=== PATIENT | female | born 1940 | race Caucasian/White ===

== ENCOUNTER 2016-11-05 13:03 | Inpatient (IN) | payer MEDICARE ==
[~2016-11-05] VITALS: Ht 0.5 cm; Wt 95.3 kg
--- NOTE | ~2016-11-05 | EKG ---
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
--- NOTE | ~2016-11-05 | EKG ---
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 : 1940 Requested By: Roseanna Mendez Order Number: [id number] MD: Ric Del Cid Measurements Intervals [place] Rate: 77 P: 2 MA: 157 QRS: 59 QRSD: 151 T: -17 QT: 406 QTc: 460 Interpretive Statements Sinus rhythm Right bundle branch block Compared to ECG 07/28/2016 23:01:42 Atrial premature complex(es) no longer present Electronically Signed On 11-07-2016 13:46:19 CDT by Ric Del Cid [email or web address] <ELECTRONICALLY SIGNED> By: Ric Del Cid MD, FACC 11/07/16 1346 1307 1307 Ric Del Cid MD, [facility] /EPI
[2016-11-05 13:03] VITALS: BP 148/50
[~2016-11-05 13:03] MED LIST: ADVAIR 250-501 EACH INH; ADVAIRDISKUS; ADVIL LIQUI-GE200 MG PO; ALPHAGAN P15 ML OP; ANTIVERT25 MG PO; APAP500 PO; ASPIRIN325 PO; AUGMENTIN 875875 MG PO; BONIVA150 MG PO; CEFAZOLIN 1GM VI1 G1 IJ; CIPROFLOXACIN250 M2 PO; CO Q-10100 MG PO; COUMADIN 5 MG TA5 M1 PO; DOXYCYCLINE 10100 MG PO; DUONEB 2.5-0.5 M3 ML INH; ENOXAPARIN80 MG/0.1 SUBQ; ENOXAPARIN80 MG/0.8 SUBQ; FLOMAX PO; FOSAMAX 70 MG T70 MG PO; IBUPROFEN 400400 M1 PO; IBUPROFEN 400400 M2 PO; LEVAQUIN 500 M500 M2; LEVAQUIN 500 M500 MG PO; LIDODERM 5%1 PATC1 TRANSDERM; MULTIVITAMINS; NORCO 5-325 TA1 EACH PO; ONDANSETRON HCL4 M2 PO; PAIN RELIEVER325 MG; PEPCID20 MG PO; PERCOCET 5-3251 EACH PO; PREDNISONE 10 M10 MG; PREDNISONE 10 M10 MG PO; PREDNISONE 20 M20 MG PO; PROAIR HFA8.5 GM IH; PROAIR HFA8.5 GM INH; PROVENTIL; SINGULAIR 10 MG10 M1 PO; SPIRIVA INH; TAMSULOSIN HCL0.4 MG PO; TYLENOL325 MG PO; VALIUM2 MG PO; VERAPAMIL ER120 MG PO; VITAMIN C500 M1 PO; VITAMINC500; XALATAN2.5 ML OP; [UNRECOGNIZED DRUG - OTHER] PO
[2016-11-05 13:28] LABS: ABSOLUTE NEUTROPHILS 4.7 thou/uL (1.4-8.2); BASOPHILS 0.9 % (0.0-2.0); EOSINOPHILS 1.6 % (0.0-3.0); HEMATOCRIT 40.4 % (37.0-47.0); HEMOGLOBIN 13.5 gm/dL (12.0-15.0); LYMPHOCYTES 15.9 % (24.0-44.0); MCH 28.9 pg (26.0-34.0); MCHC 33.5 g/dL (28.0-37.0); MCV 86.3 fL (80.0-100.0); MONOCYTES 11.2 % (1.0-8.0); PLATELET COUNT 224 thou/uL (150-400); POLYS 70.4 % (36.0-66.0); RBC 4.68 mil/uL (4.20-5.00); RDW 16.1 % (10.5-14.5); WBC 6.7 thou/uL (4.0-11.0)
[2016-11-05 13:30] LABS: MANUAL DIFF NO
[2016-11-05 13:34] LABS: ANION GAP 7 mmol/L (7-16); BUN 17 mg/dL (7-18); CALCIUM 9.2 mg/dL (8.5-10.1); CHLORIDE 109 mmol/L (98-107); CO2 25 mmol/L (21-32); CREATININE 0.8 mg/dL (0.6-1.0); GLUCOSE 167 mg/dL (74-106); POTASSIUM 3.8 mmol/L (3.5-5.1); SODIUM 141 mmol/L (136-145)
[2016-11-05 13:42] LABS: TROPONIN-I < 0.04 ng/mL (<0.04-0.07)
[2016-11-05] MEDS ORDERED: TYLENOL325 MG PO (16:29)
[2016-11-05] MEDS ORDERED: CARDIZEM CD180 MG PO (16:30)
[2016-11-05 16:49] VITALS: BP 148/61
[2016-11-05 17:45] VITALS: BP 163/54
[2016-11-05 19:26] VITALS: BP 159/65
[2016-11-05 21:25] LABS: CK-MB MASS 3.4 ng/mL (<0.5-3.6); TROPONIN-I 0.29 ng/mL (<0.04-0.07)
[2016-11-05 23:27] VITALS: BP 150/55
[2016-11-06 02:11] LABS: GLYCOHEMOGLOBIN (HGB A1C) 5.7 % (4.8-5.6)
[2016-11-06 03:07] LABS: ANION GAP 8 mmol/L (7-16); BUN 14 mg/dL (7-18); CALCIUM 8.9 mg/dL (8.5-10.1); CHLORIDE 110 mmol/L (98-107); CHOLESTEROL 176 mg/dL (<200); CO2 25 mmol/L (21-32); CREATININE 0.7 mg/dL (0.6-1.0); GLUCOSE 102 mg/dL (74-106); HDL CHOLESTEROL 59 mg/dL (>40); LDL CHOLESTEROL 99 mg/dL (<100); POTASSIUM 3.9 mmol/L (3.5-5.1); SODIUM 143 mmol/L (136-145); TRIGLYCERIDE 92 mg/dL (<150); VLDL 18 mg/dL (<40)
[2016-11-06 03:08] LABS: SERUM ASSESSMENT Clear
[2016-11-06 03:51] VITALS: BP 124/41
[2016-11-06 07:40] VITALS: BP 138/52
[2016-11-06 09:46] VITALS: BP 138/52
[2016-11-06] MEDS ORDERED: LOPRESSOR25 PO (10:21)
== END 2016-11-06 11:07 | disposition home or self-care (01) | DRG 313 ==
LOC: ER 13:03 → EROBS 15:49 → 2N 16:39
PROVIDERS: Emergency Medicine; Nurse Practitioner
DX: R07.9 Chest pain, unspecified (principal); J44.9 Chronic obstructive pulmonary disease, unspecified; F41.9 Anxiety disorder, unspecified; G47.30 Sleep apnea, unspecified; H40.9 Unspecified glaucoma; I10 Essential (primary) hypertension; I35.0 Nonrheumatic aortic (valve) stenosis; M81.0 Age-related osteoporosis without current pathological fracture; Z79.899 Other long term (current) drug therapy; Z88.8 Allergy status to other drugs, medicaments and biological substances; Z90.49 Acquired absence of other specified parts of digestive tract; Z86.711 Personal history of pulmonary embolism; Z98.42 Cataract extraction status, left eye; Z98.41 Cataract extraction status, right eye; Z87.442 Personal history of urinary calculi; Z88.2 Allergy status to sulfonamides; Z88.5 Allergy status to narcotic agent; Z87.891 Personal history of nicotine dependence; Z82.49 Family history of ischemic heart disease and other diseases of the circulatory system; Z83.3 Family history of diabetes mellitus; Z80.9 Family history of malignant neoplasm, unspecified; Z99.81 Dependence on supplemental oxygen
CPT/HCPCS: 10081

== ENCOUNTER 2017-08-14 15:22 | Inpatient (IN) | payer MEDICARE ==
[~2017-08-14] VITALS: Ht 162.6 cm; Wt 88.0 kg
--- NOTE | ~2017-08-14 | EKG ---
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 : 1940 Requested By: Naveen Kaye Order Number: [id number] MD: Ric Del Cid Measurements Intervals [place] Rate: 60 P: 6 CO: 170 QRS: 64 QRSD: 150 T: -11 QT: 457 QTc: 457 Interpretive Statements Sinus rhythm Right bundle branch block Compared to ECG 11/05/2016 16:58:42 No significant changes Electronically Signed On 08-15-2017 8:40:27 [employer]TER VELVET by Ric Del Cid [email or web address] <ELECTRONICALLY SIGNED> By: Ric Del Cid MD, [facility] 08/15/17 0840 1542 1542 Ric Del Cid MD, [facility] /EPI
[2017-08-14 15:22] VITALS: BP 171/71
[~2017-08-14 15:22] MED LIST changes: +CARDIZEM CD180 MG PO; +LOPRESSOR25 PO
[2017-08-14 16:22] LABS: ANION GAP 4 mmol/L (7-16); BUN 18 mg/dL (7-18); CALCIUM 9.6 mg/dL (8.5-10.1); CHLORIDE 106 mmol/L (98-107); CO2 28 mmol/L (21-32); CREATININE 0.8 mg/dL (0.6-1.0); GLUCOSE 102 mg/dL (74-106); POTASSIUM 3.9 mmol/L (3.5-5.1); SODIUM 138 mmol/L (136-145)
[2017-08-14 16:31] LABS: TROPONIN-I < 0.04 ng/mL (<0.06)
[2017-08-14 16:35] LABS: ABSOLUTE NEUTROPHILS 3.7 thou/uL (1.4-8.2); BASOPHILS 1.2 % (0.0-2.0); EOSINOPHILS 2.3 % (0.0-3.0); HEMATOCRIT 41.8 % (37.0-47.0); HEMOGLOBIN 14.3 gm/dL (12.0-15.0); LYMPHOCYTES 22.4 % (24.0-44.0); MCH 30.5 pg (26.0-34.0); MCHC 34.2 g/dL (28.0-37.0); MCV 89.3 fL (80.0-100.0); MONOCYTES 9.3 % (1.0-8.0); PLATELET COUNT 189 thou/uL (150-400); POLYS 64.8 % (36.0-66.0); RBC 4.68 mil/uL (4.20-5.00); RDW 15.4 % (10.5-14.5); WBC 5.7 thou/uL (4.0-11.0)
[2017-08-14 18:30] VITALS: BP 153/57
[2017-08-14 19:10] VITALS: BP 134/56
[2017-08-14 19:30] VITALS: BP 135/63
[2017-08-15 00:38] VITALS: BP 115/59
[2017-08-15 04:00] VITALS: BP 135/54
[2017-08-15 06:12] LABS: HEMATOCRIT 40.2 % (37.0-47.0); HEMOGLOBIN 13.6 gm/dL (12.0-15.0); MCH 30.5 pg (26.0-34.0); MCHC 33.9 g/dL (28.0-37.0); RBC 4.47 mil/uL (4.20-5.00); RDW 15.3 % (10.5-14.5); WBC 6.2 thou/uL (4.0-11.0)
[2017-08-15 06:31] LABS: CALCIUM 9.1 mg/dL (8.5-10.1); CREATININE 0.8 mg/dL (0.6-1.0); POTASSIUM 4.1 mmol/L (3.5-5.1)
[2017-08-15 07:31] VITALS: BP 137/58
[2017-08-15 15:11] VITALS: BP 132/64
[2017-08-15 16:33] VITALS: BP 132/64
== END 2017-08-15 17:32 | disposition home or self-care (01) | DRG 149 ==
LOC: ER 15:22 → 4E 17:32 → EROBS 17:32 → 4E 19:11
PROVIDERS: Hospitalist; Nurse Practitioner
DX: R42 Dizziness and giddiness (principal); I10 Essential (primary) hypertension; J44.9 Chronic obstructive pulmonary disease, unspecified; H40.9 Unspecified glaucoma; F41.9 Anxiety disorder, unspecified; M81.0 Age-related osteoporosis without current pathological fracture; Z88.8 Allergy status to other drugs, medicaments and biological substances; Z88.6 Allergy status to analgesic agent; Z91.013 Allergy to seafood; Z90.49 Acquired absence of other specified parts of digestive tract; Z79.899 Other long term (current) drug therapy; Z86.711 Personal history of pulmonary embolism; Z87.442 Personal history of urinary calculi; Z98.42 Cataract extraction status, left eye; Z98.41 Cataract extraction status, right eye; Z87.01 Personal history of pneumonia (recurrent); Z82.49 Family history of ischemic heart disease and other diseases of the circulatory system; Z83.3 Family history of diabetes mellitus; Z87.891 Personal history of nicotine dependence
CPT/HCPCS: 10084

== ENCOUNTER 2018-12-07 10:20 | Inpatient (IN) | payer MEDICARE ==
[~2018-12-07] VITALS: Ht 162.6 cm; Wt 85.5 kg
[2018-12-07 10:21] VITALS: BP 154/58
[2018-12-07 11:00] LABS: ABSOLUTE NEUTROPHILS 4.5 thou/uL (1.4-8.2); BASOPHILS 0.7 % (0.0-2.0); EOSINOPHILS 2.1 % (0.0-3.0); HEMATOCRIT 42.6 % (37.0-47.0); HEMOGLOBIN 14.4 gm/dL (12.0-15.0); LYMPHOCYTES 18.7 % (24.0-44.0); MCH 30.6 pg (26.0-34.0); MCHC 33.7 g/dL (28.0-37.0); MCV 90.8 fL (80.0-100.0); MONOCYTES 7.8 % (1.0-8.0); PLATELET COUNT 224 thou/uL (150-400); POLYS 70.7 % (36.0-66.0); RBC 4.69 mil/uL (4.20-5.00); RDW 14.6 % (10.5-14.5); WBC 6.3 thou/uL (4.0-11.0)
[2018-12-07 11:06] LABS: ANION GAP 12 mmol/L (7-16); BUN 13 mg/dL (7-18); CALCIUM 9.6 mg/dL (8.5-10.1); CHLORIDE 106 mmol/L (98-107); CO2 25 mmol/L (21-32); CREATININE 0.8 mg/dL (0.6-1.0); GLUCOSE 100 mg/dL (74-106); SODIUM 143 mmol/L (136-145)
[2018-12-07 11:16] LABS: ALBUMIN 3.7 g/dL (3.4-5.0); MAGNESIUM 2.1 mg/dL (1.8-2.4); SGOT 20 U/L (15-37); SGPT 22 U/L (30-65); TOTAL BILIRUBIN 0.4 mg/dL (<0.1-1.0); TOTAL PROTEIN 7.2 g/dL (6.4-8.2); TROPONIN-I <0.06 ng/mL (<0.06)
[2018-12-07 13:08] VITALS: BP 154/55
[2018-12-07 13:25] VITALS: BP 147/56
[2018-12-07] MEDS ORDERED: CARDIZEM CD120 MG PO (13:25)
[2018-12-07] MEDS ORDERED: XALATAN2.5 ML OPHTHALMIC (16:03)
--- NOTE | 2018-12-07 16:12 | 2DMMODE ---
[facility] [address] [facility] [place] [address] 2 D/M-MODE ECHOCARDIOGRAM Name: BHARATHI GRANT Room #: 200-I ADM IN M.R.#: [id number] ������������� Admission: 12/07/18 ������������� Attend Phys: Sixto Osorio MD Discharge: ��� ������������� ��� Date of : 40 Date of Service: 12/07/18 1612 �� Report #: [id number] �������� ��������������������������������������������[id number] THIS REPORT FOR: //name// APPROVED REPORT Study performed: 12/07/2018 13:06:02 EXAM: Comprehensive 2D, Doppler, and color-flow Echocardiogram Patient Location: Bedside Room #: 200 Status: routine BSA: 1.93 HR: 66 bpm BP: 147/58 mmHg Rhythm: Sinus/Irregular Indications Dyspnea Elevated BNP, history of aortic stenosis. Hx: COPD, HTN. 2D Dimensions RVDd: 48.38 mm IVSd: 10.91 (7-11mm) LVOT Diam: 20.58 (18-24mm) LVDd: 55.39 mm PWd: 10.96 (7-11mm) Ascending Ao: 36.82 (22-36mm) LVDs: 38.69 (25-40mm) Aortic Root: 34.57 mm Volumes Left Atrial Volume (Systole) Single Plane 4CH: 68.87 mL Single Plane 2CH: 76.99 mL LA ESV Index: 41.00 mL/m2 Aortic Valve AoV Peak Myron.: 4.38 m/s AO Peak Gr.: 76.73 mmHg LVOT Max P.65 mmHg AO Mean Gr.: 41.94 mmHg AO V2 Mean: 3.10 m/s LVOT Max V: 1.19 m/s AO V2 VTI: 103.90 cm ADALI Vmax: 0.90 cm2 AI Vmax: 4.74 m/s AI [place]: 2.63 m/s2 AI PHT: 523.[address] [facility] [place] [address] 2 D/M-MODE ECHOCARDIOGRAM Name: RUYDBHARATHI ALO Room #: 200-I ADM IN .R.#: [id number] ������������� Admission: 12/07/18 ������������� Attend Phys: Sixto Osorio MD Discharge: ��� ������������� ��� Date of : 40 Date of Service: 12/07/18 1612 �� Report #: [id number] �������� ��������������������������������������������[id number] Mitral Valve E/A Ratio: 0.7 MV Decel. Time: 153.77 ms MV E Max Myron.: 0.89 m/s MV A Myron.: 1.27 m/s MV PHT: 44.59 ms IVRT: 96.89 ms Pulmonary Valve PV Peak Myron.: 1.49 m/s PV Peak Gr.: 8.82 mmHg Pulmonary Vein P Vein S: 0.51 m/s P Vein A: 0.30 m/s P Vein D: 0.39 m/s P Vein A Dur.: 133.8 msec P Vein S/D Ratio: 1.31 Tricuspid Valve TR Peak Myron.: 2.43 m/s RAP Estimate: 5.00 mmHg TR Peak Gr.: 23.56 mmHg PA Pressure: 29.00 mmHg Left Ventricle The left ventricle is normal size. There is normal LV segmental wall motion. Mild concentric left ventricular hypertrophy. Left ventricular systolic function is normal. LVEF is 55%. Mild diastolic dysfunction is present (impaired relaxation pattern). Right Ventricle The right ventricle is normal size. The right ventricular systolic function is normal. Atria Left atrium is moderately dilated. Right atrium is mildly dilated. Aortic Valve Aortic valve is heavily calcified. Moderate aortic regurgitation. There is moderate to severe valvular aortic stenosis. Calculated aortic valve area is 0.9 cm2 with maximum pressure gradient of 77 mmHg and mean pressure gradient of 42 mmHg. Mitral Valve The mitral valve is normal in structure. Moderate mitral annular calcification. Mild mitral regurgitation. No evidence of mitral valve stenosis. [facility] [address] [place] [address] 2 D/M-MODE ECHOCARDIOGRAM Name: BHARATHI GRANT Room #: 200-[facility] IN ..#: [id number] ������������� Admission: 12/07/18 ������������� Attend Phys: Sixto Osorio MD Discharge: ��� ������������� ��� Date of : 40 Date of Service: 12/07/18 1612 �� Report #: [id number] �������� ��������������������������������������������[id number] Tricuspid Valve The tricuspid valve is normal in structure. Trace tricuspid regurgitation. Estimated PAP is 30mmHg. Pulmonic Valve The pulmonary valve is normal in structure. Moderate pulmonic regurgitation. Great Vessels The aortic root is normal in size. The ascending aorta is normal in size. IVC is normal in size and collapses >50% with inspiration. Pericardium no effusion <Conclusion> The left ventricle is normal size. Mild concentric left ventricular hypertrophy. LVEF is 55%. Mild diastolic dysfunction is present (impaired relaxation pattern). The right ventricle is normal size. Left atrium is moderately dilated. Right atrium is mildly dilated. Aortic valve is heavily calcified. Moderate aortic regurgitation. There is moderate to severe valvular aortic stenosis. Calculated aortic valve area is 0.9 cm2 with maximum pressure gradient of 77 mmHg and mean pressure gradient of 42 mmHg. The mitral valve is normal in structure. Moderate mitral annular calcification. Mild mitral regurgitation. Trace tricuspid regurgitation. Estimated PAP is 30mmHg. The aortic root is normal in size. no effusion ��������������������������������������������� <ELECTRONICALLY SIGNED> ���������������������������������������� By: Srini Sanford MD, FACC ��������������������������������������������� 12/07/181611 11 11 Srini Sanford MD, FACC /INF
[2018-12-07 20:02] VITALS: BP 142/45
[2018-12-08 04:08] VITALS: BP 139/50
--- NOTE | 2018-12-08 05:08 | NUR ---
ASSESSMENT DOCUMENTED.PT RESTING WELL THROUGH THE NOC.A/OX4.VSS.CPAP WHILE SLEEPING.SPO2 98%.TYLENOL GIVEN FOR HEADACHE WITH RELIEF.UP AD JASPER TO BR W/STEADY GAIT.NOTED DYSPNEA WITH AMBULATION WITH O2 DROPING TO 80S.DIURESING WITH LASIX.PT DENIES ANY NEEDS AT THIS TIME.WILL CONT TO MONITOR PER POC.
[2018-12-08 05:23] LABS: ABSOLUTE NEUTROPHILS 4.9 thou/uL (1.4-8.2); BASOPHILS 0.1 % (0.0-2.0); HEMATOCRIT 41.7 % (37.0-47.0); HEMOGLOBIN 14.1 gm/dL (12.0-15.0); MCH 30.7 pg (26.0-34.0); MCHC 33.9 g/dL (28.0-37.0); MCV 90.6 fL (80.0-100.0); MONOCYTES 2.1 % (1.0-8.0); PLATELET COUNT 198 thou/uL (150-400); POLYS 87.8 % (36.0-66.0); RDW 14.4 % (10.5-14.5); WBC 5.6 thou/uL (4.0-11.0)
[2018-12-08 05:40] LABS: ANION GAP 9 mmol/L (7-16); BUN 22 mg/dL (7-18); CALCIUM 9.3 mg/dL (8.5-10.1); CHLORIDE 104 mmol/L (98-107); CHOLESTEROL 214 mg/dL (<200); CO2 26 mmol/L (21-32); GLUCOSE 176 mg/dL (74-106); HDL CHOLESTEROL 78 mg/dL (>40); LDL CHOLESTEROL 127 mg/dL (<100); MAGNESIUM 2.1 mg/dL (1.8-2.4); POTASSIUM 4.2 mmol/L (3.5-5.1); SODIUM 139 mmol/L (136-145); TC:HDL 2.7 Ratio (Not establshd); TRIGLYCERIDE 49 mg/dL (<150); TROPONIN-I <0.06 ng/mL (<0.06); VLDL 10 mg/dL (<40)
[2018-12-08 05:41] LABS: SERUM ASSESSMENT Clear
--- NOTE | 2018-12-08 07:47 | EKG ---
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: ROSE : 1940 Requested By: Fede Polk Order Number: [id number] MD: Ric Del Cid Measurements Intervals [place] Rate: 62 P: 4 MO: 147 QRS: 75 QRSD: 148 T: -18 QT: 443 QTc: 450 Interpretive Statements Sinus rhythm Multiple premature complexes, vent & supraven Right bundle branch block Compared to ECG 08/14/2017 15:42:48 Ectopy is now present Electronically Signed On 12-08-2018 7:47:20 CDT by Ric Del Cid [email or web address] ��������������������������������������������� <ELECTRONICALLY SIGNED> ���������������������������������������� By: Ric Del Cid MD, FACC ��������������������������������������������� 12/08/18 0747 1046 1046 Ric Del Cid MD, [facility] /EPI
[2018-12-08 08:20] VITALS: BP 130/55
--- NOTE | 2018-12-08 13:37 | HC ---
[facility] [place] [address] CONSULTATION Name: BHARATHI MAJOR Room #: 200-I ADM IN M.R.#: [id number] Admission: 12/07/18 ������������������ Attend Phys: Sixto Osorio MD Discharge: ������������������ Date of : 40 Report #: [id number] THIS REPORT FOR: //name// CC: Sixto Ortiz MD DATE OF SERVICE: 12/07/2018 CARDIOLOGY CONSULTATION HISTORY OF PRESENT ILLNESS: The patient is a 78-year-old single white female who I was asked to see in the hospital today after she complained of being short of breath. The patient has an extensive past medical history. She smoked a pack of cigarettes a day for years. She has a history of COPD and is on chronic oxygen. She has a history of PSVT and had a previous ablation by Dr. Alvarez in 2014. She actually saw my nurse practitioner in August of this year. Her previous echocardiogram showed normal left ventricular function. Since the ablation, the patient only had a rare episode of tachycardia. The patient was last admitted here to [facility] in August with vertigo. She states that she was at home today and noticed more shortness of breath and hypoxia. She is on chronic oxygen, is not very active. She came to the hospital, was admitted. I was asked to see her for further evaluation and treatment. She notes only occasional racing of her heart, but no syncope. She denied any chest pain. She has had no increased edema. PAST MEDICAL HISTORY: She has had previous appendectomy, cataract extraction, cholecystectomy. She apparently has had previous pleurodesis for pleural effusion. She has no history of diabetes. MEDICATIONS: Include nebulizer aspirin, diltiazem, meclizine. ALLERGIES: She has allergy to MORPHINE and SULFA. FAMILY HISTORY: Father had a stroke. SOCIAL HISTORY: She is single, lives in [place], [place]. Previously smoked a pack of cigarettes a day, quit 20 years ago. No alcohol abuse. REVIEW OF SYSTEMS: She has had no history of stroke. She does have sleep apnea, uses CPAP. She has COPD. She sees Dr. Major. No history of kidney disease, cancer, psychiatric illness, chronic skin condition. She has had kidney stone. PHYSICAL EXAMINATION: GENERAL: Revealed an elderly overweight female lying in bed. She appeared in [facility] [address] [place] [address] CONSULTATION Name: BHARATHI MAJOR Room #: 200-I ADM IN [facility].#: [id number] Admission: 12/07/18 ������������������ Attend Phys: Sixto Osorio MD Discharge: ������������������ Date of : 40 Report #: [id number] no acute distress. VITAL SIGNS: She had a blood pressure of 140/60, pulse 60. She is afebrile. HEENT: She is anicteric, conjunctivae pink. Mucous members moist. NECK: Veins do not appear distended. CHEST: Revealed distant breath sounds. CARDIAC: Regular rate and rhythm. ABDOMEN: Obese. EXTREMITIES: Had no pitting edema. SKIN: Cool and dry. NEUROLOGIC: Nonfocal. DIAGNOSTIC STUDIES: Her ECG on admission showed a sinus rhythm, occasional PVC with a right bundle-branch block. She had an echocardiogram done in the hospital today that showed ejection fraction 55%, biatrial enlargement, aortic sclerosis, evidence of aortic insufficiency. She appeared to have aortic valve area that was decreased with a peak gradient of 77 mmHg, consistent with significant aortic stenosis. Her x-rays done in the Emergency Room included a portable chest x-ray that showed cardiomegaly, pulmonary vascular congestion. Her CT scan of the head done last year showed no acute abnormality. LABORATORY DATA: Sodium 143, potassium 4.0, BUN 13, creatinine 0.8. Liver function studies were normal. White blood cell count 6.3, hemoglobin 14.4. IMPRESSION RECOMMENDATIONS: 1. Severe aortic stenosis. The patient not an operative candidate. I would consider referral for a TAVR. 2. Chronic obstructive pulmonary disease. 3. History of supraventricular tachycardia. No clinical recurrences. The patient had previous ablation. I will continue diltiazem. 4. Hypertension. The patient on a calcium alia. 5. Previous pleurodesis of the lung. 6. Sleep apnea. The patient uses CPAP. ��������������������������������������������� <ELECTRONICALLY SIGNED> ���������������������������������������� By: Yomi Angelo MD, [facility] ��������������������������������������������� 12/08/18 1337 1659 0155 Yomi Angelo MD, FAC /nt
[2018-12-08 16:38] VITALS: BP 137/51
--- NOTE | 2018-12-08 16:50 | NUR ---
Chart reviewed and case discussed with the care team. Pt anticipated to dc home this weekend with outpt f/u arranged thru cardiology. Pt has home o2 in place per [employer]. She lives alone independently. She has supportive family and friends. No cm interventions indicated at this time. Health insurance coverage in place. Pt's pcp is Dr. Elvia Ortiz.
--- NOTE | 2018-12-08 17:51 | NUR ---
ASSESSMENT DOCUMNTED. PT ALERT AND ORIENTED. VSS. RECEIVED PRN PAIN MED FOR SIM WITH PARTIAL RELIEF. SEEN BY DR. FLORES. NO NEW ORDERS. WILL CONTINUE TO MONITOR.
[2018-12-08 19:05] VITALS: BP 142/57
--- NOTE | 2018-12-09 00:33 | NUR ---
ASSUMED PT CARE 1900. PT SLEEPING. AGREE WITH PREVIOUS NURSE ASSESSMENT. IV C/D/I, NO SIGNS OF INFILTRATION. PT DENIES PAIN, DENIES N/V. WILL CONTINUE POC UNTIL EOS.
[2018-12-09 04:04] VITALS: BP 116/61
[2018-12-09 05:24] LABS: CALCIUM 9.2 mg/dL (8.5-10.1); CREATININE 0.9 mg/dL (0.6-1.0); POTASSIUM 4.1 mmol/L (3.5-5.1)
[2018-12-09 07:04] VITALS: BP 120/43
[2018-12-09] MEDS ORDERED: LASIX 40 MG TAB40 M2 PO (12:51)
[2018-12-09 12:56] VITALS: BP 120/43
--- NOTE | 2018-12-09 13:43 | NUR ---
ASSESSMENT CHARTED. PT ALERT AND ORIENTED. VSS. DENIED HAVING PAIN OR DISCOMFORT. VSS. ORDERS GIVEN TO DISCHARGE PT TO HOME. DISCHARGE INSTRUCTIONS GIVEN TO PT. PT VERBERLIZE UNDERSTANDING.
== END 2018-12-09 14:02 | disposition home or self-care (01) | DRG 291 ==
LOC: ER 10:20 → EROBS 11:36 → 2N 11:36
PROVIDERS: Emergency Medicine; Internal Medicine Cardiovascular Disease; Nurse Practitioner; ADMIT Hospitalist
DX: I11.0 Hypertensive heart disease with heart failure (principal); J96.21 Acute and chronic respiratory failure with hypoxia; I50.33 Acute on chronic diastolic (congestive) heart failure; I35.0 Nonrheumatic aortic (valve) stenosis; J44.9 Chronic obstructive pulmonary disease, unspecified; F41.9 Anxiety disorder, unspecified; M81.0 Age-related osteoporosis without current pathological fracture; E66.9 Obesity, unspecified; G47.33 Obstructive sleep apnea (adult) (pediatric); I27.20 Pulmonary hypertension, unspecified; I48.91 Unspecified atrial fibrillation; H40.9 Unspecified glaucoma; Z60.2 Problems related to living alone; Z90.49 Acquired absence of other specified parts of digestive tract; Z86.711 Personal history of pulmonary embolism; Z87.442 Personal history of urinary calculi; Z87.01 Personal history of pneumonia (recurrent); Z98.42 Cataract extraction status, left eye; Z98.41 Cataract extraction status, right eye; Z79.899 Other long term (current) drug therapy; Z79.82 Long term (current) use of aspirin; Z88.6 Allergy status to analgesic agent; Z88.2 Allergy status to sulfonamides; Z88.8 Allergy status to other drugs, medicaments and biological substances; Z87.891 Personal history of nicotine dependence; Z99.81 Dependence on supplemental oxygen; Z82.3 Family history of stroke; Z68.32 Body mass index [BMI] 32.0-32.9, adult; Z82.49 Family history of ischemic heart disease and other diseases of the circulatory system; Z83.3 Family history of diabetes mellitus; Z80.8 Family history of malignant neoplasm of other organs or systems
CPT/HCPCS: 10081

== ENCOUNTER 2019-02-24 17:31 | Emergency (ER) | payer MEDICARE ==
[~2019-02-24] VITALS: Ht 162.6 cm; Wt 86.2 kg
[~2019-02-24 17:31] MED LIST changes: +CARDIZEM CD120 MG PO; +LASIX 40 MG TAB40 M2 PO; +XALATAN2.5 ML OPHTHALMIC
[2019-02-24] MEDS ORDERED: ASPIR 8181 MG PO (17:39)
[2019-02-24 17:56] LABS: ABSOLUTE NEUTROPHILS 4.4 thou/uL (1.4-8.2); BASOPHILS 0.8 % (0.0-2.0); EOSINOPHILS 2.3 % (0.0-3.0); HEMATOCRIT 38.4 % (37.0-47.0); HEMOGLOBIN 13.1 gm/dL (12.0-15.0); LYMPHOCYTES 15.7 % (24.0-44.0); MCH 31.1 pg (26.0-34.0); MCV 91.5 fL (80.0-100.0); MONOCYTES 9.6 % (1.0-8.0); PLATELET COUNT 138 thou/uL (150-400); POLYS 71.6 % (36.0-66.0); RDW 15.2 % (10.5-14.5); WBC 6.2 thou/uL (4.0-11.0)
[2019-02-24 18:00] LABS: ANION GAP 11 mmol/L (7-16); BUN 18 mg/dL (7-18); CALCIUM 9.1 mg/dL (8.5-10.1); CHLORIDE 107 mmol/L (98-107); CO2 24 mmol/L (21-32); CREATININE 0.8 mg/dL (0.6-1.0); GLUCOSE 171 mg/dL (74-106); POTASSIUM 3.6 mmol/L (3.5-5.1); SODIUM 142 mmol/L (136-145)
[2019-02-24 18:11] LABS: ALBUMIN 3.2 g/dL (3.4-5.0); SGOT 18 U/L (15-37); SGPT 18 U/L (30-65); TOTAL BILIRUBIN 0.5 mg/dL (<0.1-1.0); TOTAL PROTEIN 6.5 g/dL (6.4-8.2); TROPONIN-I <0.06 ng/mL (<0.06)
[2019-02-24 19:20] LABS: URINE BILIRUBIN NEGATIVE (Negative); URINE BLOOD NEGATIVE (Negative); URINE CLARITY CLEAR; URINE COLOR YELLOW; URINE GLUCOSE-RANDOM* NEGATIVE (Negative); URINE KETONES NEGATIVE (Negative); URINE LEUKOCYTES-REFLEX NEGATIVE (Negative); URINE NITRITE-REFLEX NEGATIVE (Negative); URINE PROTEIN (DIPSTICK) TRACE (Negative)
[2019-02-24 22:35] VITALS: BP 157/81
--- NOTE | 2019-02-25 14:25 | EKG ---
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: Margarito : 1940 Requested By: Vlad Ricketts Order Number: [id number] MD: Ric Del Cid Measurements Intervals [place] Rate: 78 P: -7 NM: 198 QRS: 70 QRSD: 154 T: -23 QT: 405 QTc: 462 Interpretive Statements Sinus rhythm Ventricular premature complex Right bundle branch block Compared to ECG 12/07/2018 10:46:55 No significant change was found Electronically Signed On 02-25-2019 14:25:41 CDT by Ric Del Cid [email or web address] ��������������������������������������������� <ELECTRONICALLY SIGNED> ���������������������������������������� By: Ric Del Cid MD, [facility] ��������������������������������������������� 02/25/19 1425 1735 173 Ric Del Cid MD, [facility] /EPI
== END 2019-02-24 22:35 | disposition home or self-care (01) ==
LOC: ER 17:31
PROVIDERS: Emergency Medicine
DX: R42 Dizziness and giddiness (principal); G47.30 Sleep apnea, unspecified; F41.9 Anxiety disorder, unspecified; I10 Essential (primary) hypertension; M81.0 Age-related osteoporosis without current pathological fracture; J44.9 Chronic obstructive pulmonary disease, unspecified; Z87.891 Personal history of nicotine dependence; Z88.8 Allergy status to other drugs, medicaments and biological substances; Z88.4 Allergy status to anesthetic agent; Z88.2 Allergy status to sulfonamides; Z88.5 Allergy status to narcotic agent; Z90.49 Acquired absence of other specified parts of digestive tract; Z87.442 Personal history of urinary calculi

== ENCOUNTER 2019-02-27 06:57 | Inpatient (IN) | payer MEDICARE ==
[~2019-02-27] VITALS: Ht 162.6 cm; Wt 83.9 kg
[~2019-02-27 06:57] MED LIST changes: +ASPIR 8181 MG PO
[2019-02-27 06:58] VITALS: BP 169/50
[2019-02-27 07:15] LABS: BASOPHILS 0.9 % (0.0-2.0); EOSINOPHILS 2.3 % (0.0-3.0); HEMOGLOBIN 13.1 gm/dL (12.0-15.0); LYMPHOCYTES 18.5 % (24.0-44.0); MCHC 33.7 g/dL (28.0-37.0); MCV 92.2 fL (80.0-100.0); MONOCYTES 9.1 % (1.0-8.0); PLATELET COUNT 154 thou/uL (150-400); POLYS 69.2 % (36.0-66.0); RBC 4.23 mil/uL (4.20-5.00); RDW 15.2 % (10.5-14.5); WBC 5.7 thou/uL (4.0-11.0)
[2019-02-27 07:30] LABS: ANION GAP 10 mmol/L (7-16); BUN 17 mg/dL (7-18); CALCIUM 9.4 mg/dL (8.5-10.1); CHLORIDE 109 mmol/L (98-107); CO2 26 mmol/L (21-32); CREATININE 0.9 mg/dL (0.6-1.0); GLUCOSE 119 mg/dL (74-106); POTASSIUM 3.7 mmol/L (3.5-5.1); SODIUM 145 mmol/L (136-145)
[2019-02-27 07:41] LABS: ALBUMIN 3.3 g/dL (3.4-5.0); SGOT 16 U/L (15-37); SGPT 16 U/L (30-65); TOTAL BILIRUBIN 0.5 mg/dL (<0.1-1.0); TOTAL PROTEIN 6.4 g/dL (6.4-8.2); TROPONIN-I <0.06 ng/mL (<0.06)
[2019-02-27 09:27] VITALS: BP 127/76
[2019-02-27 12:29] VITALS: BP 152/60
--- NOTE | 2019-02-27 12:39 | NUR ---
ATTEMPTED TO CALL REPORT, WAS TOLD NURSE IS UNAVAILABLE AND WILL CALL BACK
[2019-02-27 13:38] VITALS: BP 148/61
--- NOTE | 2019-02-27 14:12 | EKG ---
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 Electronically Signed On 02-27-2019 14:12:24 CDT by Richie Bonilla [email or web address] <ELECTRONICALLY SIGNED> By: Richie Bonilla MD 02/27/19 1412 D: 09/700 0 Richie Bonilla MD /JENNIFER
[2019-02-27] MEDS ORDERED: STOOL SOFTENER100 M1 PO (14:46)
--- NOTE | 2019-02-27 15:22 | NUR ---
ASSUMED CARE OF PT APPROX 1400, FINISHED ADMIT, PT IS A&0X4, DIZZINESS X 1-2 DAYS D/T CARDIAC OUTPUT 2 TO BRADYCARDIC, SBA TO BSC, BED ALARM ON IN SPITE OF COGNITION BEING FULL. BRUISES IN BILAT GROIN SITES, NO HARDNESS, BRUISES ON BUE, AND BILAT FLANKS. GAVE INTRO/REMINDER TO CALL LIGHT SYSTEM, DAUGHTER AT BEDSIDE, GOOD APPETITE. WILL CONTINUE TO MONITOR, CARDIAC MONITORED. ENCOURAGED BOTH TO USE CALL LIGHT FOR ANY NEEDS
[2019-02-27 16:00] VITALS: BP 161/66
[2019-02-27 20:00] VITALS: BP 144/52
[2019-02-28 04:30] VITALS: BP 155/50
[2019-02-28 08:00] VITALS: BP 139/69
--- NOTE | 2019-02-28 09:43 | NUR ---
PT RESTING QUIETLY THRU THE NOC, BECOMES SOA WHEN ASSISTED UP TO BR AND STATES SHE FEELS LIKE A CLOUD WASHES OVER HER HEAD AND A HOT FLASH, BUT GOES AWAY AFTER REST, DR NOTIFIED, NO NEW ORDERS, HR MID 30'S TO 80'S IRREGULAR AFIB WITH PVC'S, PAUSES,3 HB, 2N HB, NO C/O PAIN, WILL CON'T TO MONITOR PER PPOC.
[2019-02-28 12:25] VITALS: BP 152/63
--- NOTE | 2019-02-28 14:31 | NUR ---
patient not in room she is having pacemanker placed. Chart reviewed. Patient is independent with adls prior to admission. She cont to drive and works at [employer]. She has home oxygen via [employer]. [employer] will follow to assist with dc planning.
--- NOTE | 2019-02-28 18:27 | NUR ---
ASSUMED CARE AT SHIFT CHANGE, SR WITH PAC's ON THE MONITOR. PATIENT TAKEN TO SENIOR SCHEDULER AROUND 1245 FOR PACEMAKER, REPORT RECIEVED FROM RECOVERY THAT PATIENT BP IS HIGH AND SHE IS BEING TREATED,JASVIR RN WILL CALL BACK WITH UPDATE BEFORE PATIENT COMES BACK TO ROOM.
[2019-03-01] VITALS (7 sets, daily range): BP systolic 110–140; BP diastolic 52–69
--- NOTE | 2019-03-01 08:18 | NUR ---
PT RESTING QUIETLYWITH IMMOBILIZER ON, USING CALL LIGHT APPROPRIATLY FOR ASSIST UP TO BSC, PRN TYLENOL GIVEN FOR C/I OF HOULDER PAIN AND SIM, HOPES TO GO HOME IN AM, VSS, REPORT GIVEN TO NEXT SHIFT TO CON'T WITH PPOC.
[2019-03-01 15:43] LABS: HEMATOCRIT 42.8 % (37.0-47.0); HEMOGLOBIN 14.3 gm/dL (12.0-15.0); MCH 30.9 pg (26.0-34.0); MCHC 33.4 g/dL (28.0-37.0); MCV 92.4 fL (80.0-100.0); RBC 4.64 mil/uL (4.20-5.00); RDW 15.1 % (10.5-14.5); WBC 5.6 thou/uL (4.0-11.0)
[2019-03-01 15:54] LABS: ALBUMIN 3.5 g/dL (3.4-5.0); CALCIUM 9.1 mg/dL (8.5-10.1); POTASSIUM 3.4 mmol/L (3.5-5.1); TOTAL BILIRUBIN 0.6 mg/dL (<0.1-1.0); TOTAL PROTEIN 6.9 g/dL (6.4-8.2)
--- NOTE | 2019-03-01 17:32 | NUR ---
PT CARE ASSUMED APPROX 0915. PT ALERT AND ORIENTED X4. DENIES PAIN AND SOA. VSS. DRY DSG TO LEFT CHEST INCISION IS C/D/I. MILD EDEMA TO SITE. DR GARVIN AWARE. PT REPORTS DIZZINESS ALMOST CONSTANTLY THIS SHIFT. DR GARVIN NOTED AND ORDERS GIVEN. DR RUIZ AWARE AND ORDERS GIVEN. ORTHOSTATIC BPs NEGATIVE AND DRs ARE AWARE. K+ TO BE REPLACED. PT COMPLIANT WITH FALL PRECAUTIONS AND HAS BEEN MADE AWARE TO NOT EVEN SIT TO SIDE OF BED WHILE FEELING DIZZY. PT AGREEABLE. CT OF HEAD NEGATIVE. PT UPDATED ON POC. DENIES CONCERNS. PT UP WITH MIN ASSIST. COMPLIANT WITH LUE IMMOBILIZER. NO DISTRESS NOTED.
[2019-03-02 03:12] VITALS: BP 127/69
--- NOTE | 2019-03-02 05:57 | NUR ---
ASSESSMENT DOCUMENTED.PT BEEN RESTING IN NO ACUTE DISTRESS.A/OX4.VSS.UP TO BSC WITH SBA.IMMOBILIZER IN PLACE.DRESSING OVER PACEMAKER INCISION,CDI.PT DENIES PAIN OR ANY DISTRESS AT THIS TIME.POC IS TO GO HOME TODAY.WILL CONT TO MONITOR PER POC.
[2019-03-02 08:17] VITALS: BP 123/69
--- NOTE | 2019-03-02 09:57 | CATHLAB ---
[facility] [place] [address] INVASIVE PROCEDURE REPORT Name: RUDYBHARATHI ALO Room #: 219-P [facility] ..#: [id number] Admission: 02/27/19 Attend Phys: Shalonda Wright, Discharge: Date of : 40 Report #: [id number] THIS REPORT FOR: //name// APPROVED REPORT Study performed: 02/28/2019 12:04:54 Patient Status: In-Patient Room #: Event Personnel: Helder Robles MD Exam: Insertion of Dual Chamber Permanent Pacemaker Indications: 79-year-old female patient status post TAVRr aortic valve replacement 6 sinus syndrome and tachybradycardia syndrome The patient is a 79 year-old female with a history of the pneumatic near syncope and near-syncope with tachybradycardia syndrome. Implanted Devices: [employer]: Generator-ref. [id number]; SN: [id number] [employer]: RA Lead-ref. 2088TC-52; SN: [id number] [employer]: RV Lead-ref. 2088TC-58; SN: [id number] Procedure The patient underwent informed consent. We discussed the details of the procedure including the risks, which include, but not limited to bleeding, infection, vascular damage, cardiac perforation, and pneumothorax. She understood these risks and was willing to proceed. As such, she was brought to the EP/Cardiac Catheterization laboratory in a fasting and sedated state and prepped and draped in a sterile fashion, received IV antibiotics prior to initiation of the procedure and a venogram was performed showing patency of the left axillary vein. The patient underwent general anesthesia, with no anesthesia related complications. The patient was brought to the EP/Cardiac Catheterization laboratory and the left chest and shoulder were prepped and draped in a sterile manner. During this case, Fluoroscopy and visipaque 10cc were used for imaging. The left subclavian region was infiltrated with 2% Lidocaine subcutaneous anesthesia. A transverse incision was made in the left upper chest cavity. The subcutaneous pocket was formed via blunt dissection. Percutaneous venous access was achieved and an introducer sheath was inserted into [address] [address] INVASIVE PROCEDURE REPORT Name: BHARATHI GRANT Room #: 219-P [facility] ..#: [id number] Admission: 02/27/19 Attend Phys: Shalonda Wright, Discharge: Date of : 40 Report #: [id number] the left Subclavian vein. Sheaths were positions using the modified Seldinger technique Utilizing fluoroscopic guidance, the atrial and ventricular lead wires were advanced over the wires and positioned in the right atria and right ventricle respectively. Capturing and sensing thresholds were verified. Electrode Parameters P Wave: 1.0mV R Wave: >12.0mV Atrial Threshold: 0.5V @ 0.4ms Ventricular Threshold: 0.75V @ 0.4ms Atrial Resistance: 410 Ventricular Resistance: 640 Dual Chamber The atrial and ventricular leads were then secured using 0.0 nonabsorbable sutures. The subcutaneous pocket was irrigated with vancomycin antibiotic solution.The atrial and ventricular leads were attached to the appropriate receptacles on the pulse generator and set screws firmly tightened to insure adequate contact and stability. The lead and pulse generator were placed into the subcutaneous pocket. Sharp and sponge counts were confirmed to be correct. At this time the pocket was closed subcutaneously with a 0 nonabsorbable suture and the skin was closed with a 3.0 Vicryl. The operative site was dressed in sterile fashion with steri strips, 4 x 4, OpSite and the patient was transferred to the floor in stable condition. Complications The patient tolerated the procedure well and there were no complications associated with the procedure. Findings Specimens Removed: No Conclusion 1. Successful implantation of a dual-chamber pacemaker with the ventricular lead in the interventricular septum active fixation and atrial lead in the right atrial appendage with active fixation [facility] [address] [place] [address] INVASIVE PROCEDURE REPORT Name: RUDYBHARATHI Room #: 219-P [facility] M.R.#: [id number] Admission: 02/27/19 Attend Phys: Shalonda Wright, Discharge: Date of : 40 Report #: [id number] Recommendations 1. Routine post implantation protocol <ELECTRONICALLY SIGNED> By: Helder Robles MD 03/02/19956 6 6 Helder Robles MD /INF
[2019-03-02 09:59] LABS: ABSOLUTE NEUTROPHILS 4.4 thou/uL (1.4-8.2); BASOPHILS 0.7 % (0.0-2.0); HEMATOCRIT 40.5 % (37.0-47.0); HEMOGLOBIN 13.6 gm/dL (12.0-15.0); LYMPHOCYTES 12.1 % (24.0-44.0); MCH 30.9 pg (26.0-34.0); MCHC 33.6 g/dL (28.0-37.0); MONOCYTES 8.2 % (1.0-8.0); PLATELET COUNT 179 thou/uL (150-400); RBC 4.41 mil/uL (4.20-5.00); WBC 5.7 thou/uL (4.0-11.0)
[2019-03-02 10:17] LABS: ALBUMIN 3.3 g/dL (3.4-5.0); CALCIUM 9.2 mg/dL (8.5-10.1); CREATININE 0.8 mg/dL (0.6-1.0); MAGNESIUM 1.9 mg/dL (1.8-2.4); TOTAL BILIRUBIN 0.6 mg/dL (<0.1-1.0); TOTAL PROTEIN 6.4 g/dL (6.4-8.2)
[2019-03-02 12:10] VITALS: BP 119/80
[2019-03-02 13:43] LABS: POTASSIUM 3.8 mmol/L (3.5-5.1)
--- NOTE | 2019-03-02 16:30 | NUR ---
Chart reviewed and case discussed with the care team. Pt up ad lucio. DC home later today with outpt f/u. Pt has home o2 in place. Attending addressing dizziness with medication. Pt did well with therapy. No cm interventions indicated at this time.
[2019-03-02 16:55] VITALS: BP 125/61
[2019-03-02 20:00] VITALS: BP 122/49
--- NOTE | 2019-03-03 03:08 | NUR ---
ASSESSMENT DOCUMENTED.PT BEEN RESTING IN NO ACUTE DISTRESS.VSS.IMMOBILIZER IN PLACE.PACEMAKER INCISONS COVERED WITH WITH DRESSING,CDI.POC IS TO DISCHARGE TO HOME TODAY.WILL CONT TO MONITOR PER POC.
[2019-03-03 04:00] VITALS: BP 152/72
[2019-03-03 08:34] VITALS: BP 145/41
[2019-03-03 12:45] VITALS: BP 137/63
[2019-03-03] MEDS ORDERED: PANTOPRAZOLE SO40 M1 PO (12:51)
[2019-03-03] MEDS ORDERED: MIRALAX17 GM PO (12:51)
[2019-03-03] MEDS ORDERED: ANTIVERT25 MG PO (13:02)
[2019-03-03 13:17] VITALS: BP 137/63
--- NOTE | 2019-03-03 14:40 | NUR ---
ASSESSMENT CHARTED - MEDS PER AUG - NO CO'S OF PAIN OR NAUSEA. JOEL DIET AND FLUIIDS. UP TO THE BSC - AMBULATING IN ROOM - IMMOBLIZER REMOVE FOR PATIENT WITH INSTRUCTION NOT TO LIFT ARM ABOVE SHOULDER HEIGHT AND TO WEAR IMMOBILIZER TO BED. PT HOME THIS AFTERNOON. INSTRUCTION RE HOME MEDS/ CARE AND FOLLOW UP GIVEN TO PATIENT STATED UNDERSTANDING OF INSTRUCION GIVEN. IV X 2 AND MONITOR REMOVED PRIOR TO D/C. PT LEFT UNIT VIA WHEELCHAIR - HOME VIA PVT VEHICLE ACCOMAPNIED BY DAUGHTER. NO CO'S AT TIME OF D/C.
[2019-04-15] MEDS ORDERED: FOLIC ACID1 MG PO (19:50)
[2019-04-15] MEDS ORDERED: VITAMIN B-125000 MCG SUBLING (19:50)
== END 2019-03-03 14:43 | disposition home or self-care (01) | DRG 242 ==
LOC: ER 06:57 → 2N 08:54 → EROBS 08:54 → 2N 13:43
PROVIDERS: Emergency Medicine; Internal Medicine; ADMIT Internal Medicine
PROC: 02H63JZ Insertion of Pacemaker Lead into Right Atrium, Percutaneous Approach (ICD-10-PCS; principal; 2019-02-28)
PROC: 02HK3JZ Insertion of Pacemaker Lead into Right Ventricle, Percutaneous Approach (ICD-10-PCS; principal; 2019-02-28)
PROC: 0JH606Z Insertion of Pacemaker, Dual Chamber into Chest Subcutaneous Tissue and Fascia, Open Approach (ICD-10-PCS; principal; 2019-02-28)
DX: I49.5 Sick sinus syndrome (principal); E43 Unspecified severe protein-calorie malnutrition; I44.2 Atrioventricular block, complete; I11.0 Hypertensive heart disease with heart failure; I48.0 Paroxysmal atrial fibrillation; I35.0 Nonrheumatic aortic (valve) stenosis; J44.9 Chronic obstructive pulmonary disease, unspecified; E66.9 Obesity, unspecified; I35.1 Nonrheumatic aortic (valve) insufficiency; I50.9 Heart failure, unspecified; E78.5 Hyperlipidemia, unspecified; E53.8 Deficiency of other specified B group vitamins; M81.0 Age-related osteoporosis without current pathological fracture; F41.9 Anxiety disorder, unspecified; I45.10 Unspecified right bundle-branch block; I27.20 Pulmonary hypertension, unspecified; F17.211 Nicotine dependence, cigarettes, in remission; Z79.1 Long term (current) use of non-steroidal anti-inflammatories (NSAID); Z79.51 Long term (current) use of inhaled steroids; Z99.81 Dependence on supplemental oxygen; Z79.899 Other long term (current) drug therapy; Z79.82 Long term (current) use of aspirin; Z90.49 Acquired absence of other specified parts of digestive tract; Z88.2 Allergy status to sulfonamides; Z88.5 Allergy status to narcotic agent; Z88.8 Allergy status to other drugs, medicaments and biological substances; Z91.041 Radiographic dye allergy status; Z82.49 Family history of ischemic heart disease and other diseases of the circulatory system; Z83.3 Family history of diabetes mellitus; Z80.9 Family history of malignant neoplasm, unspecified; Z68.31 Body mass index [BMI] 31.0-31.9, adult; G47.33 Obstructive sleep apnea (adult) (pediatric)
CPT/HCPCS: 10081; 62110; 62900; 70005

== ENCOUNTER 2019-03-19 06:56 | Emergency (ER) | payer MEDICARE ==
[~2019-03-19] VITALS: Ht 167.6 cm; Wt 88.1 kg
[~2019-03-19 06:56] MED LIST changes: +MIRALAX17 GM PO; +PANTOPRAZOLE SO40 M1 PO; +STOOL SOFTENER100 M1 PO
[2019-03-19 07:30] LABS: ABSOLUTE NEUTROPHILS 4.5 thou/uL (1.4-8.2); EOSINOPHILS 2.7 % (0.0-3.0); LYMPHOCYTES 14.6 % (24.0-44.0); MCH 30.8 pg (26.0-34.0); MCHC 33.3 g/dL (28.0-37.0); MCV 92.4 fL (80.0-100.0); MONOCYTES 8.4 % (1.0-8.0); POLYS 73.3 % (36.0-66.0); RBC 4.54 mil/uL (4.20-5.00); WBC 7.1 thou/uL (4.0-11.0)
[2019-03-19 07:35] LABS: ANION GAP 9 mmol/L (7-16); BUN 14 mg/dL (7-18); CALCIUM 9.6 mg/dL (8.5-10.1); CHLORIDE 106 mmol/L (98-107); CO2 27 mmol/L (21-32); CREATININE 0.8 mg/dL (0.6-1.0); GLUCOSE 112 mg/dL (74-106); POTASSIUM 3.7 mmol/L (3.5-5.1); SODIUM 142 mmol/L (136-145)
[2019-03-19 07:45] LABS: ALBUMIN 3.5 g/dL (3.4-5.0); DIRECT BILIRUBIN 0.2 mg/dL (<0.1-0.3); SGOT 28 U/L (15-37); SGPT 20 U/L (30-65); TOTAL BILIRUBIN 0.6 mg/dL (<0.1-1.0); TOTAL PROTEIN 6.7 g/dL (6.4-8.2); TROPONIN-I <0.06 ng/mL (<0.06)
[2019-03-19 08:17] LABS: PLATELET COUNT 140 thou/uL (150-400)
--- NOTE | 2019-03-19 09:06 | EKG ---
[place] [address] [place] [address] ELECTROCARDIOGRAM REPORT Name: RYLEY GRANTANEZANDRA PRAJAPATI [facility] [id number] Admission: 03/19/19 Attend Phys: Discharge: Date of : 40 Report #: [id number] THIS REPORT FOR: //name// [facility] ED Test Date: 2019-03-19 Test Time: 07:31:25 Pat Name: BHARATHI GRANT Department: Room: Gender: F Photographer'S Assistant: : 1940 Requested By: Barbara Redmond Order Number: [id number] MD: Ric Del Cid Measurements Intervals [place] Rate: 66 P: 0 TX: 155 QRS: 54 QRSD: 160 T: -14 QT: 449 QTc: 471 Interpretive Statements Sinus rhythm Right bundle branch block Nonspecific T wave abnormality No previous ECGs available for comparison Electronically Signed On 03-19-2019 9:06:17 CDT by Ric Del Cid [email or web address] <ELECTRONICALLY SIGNED> By: Ric Del Cid MD, [facility] 03/19/19 0906 0731 07 Ric Del Cid MD, FACC /EPI
[2019-03-19 10:01] VITALS: BP 168/75
[2019-03-19] MEDS ORDERED: COMPAZINE5 M1 PO (10:12)
[2019-04-15] MEDS ORDERED: VITAMIN B-125000 MCG SUBLING (19:50)
[2019-04-15] MEDS ORDERED: FOLIC ACID1 MG PO (19:50)
== END 2019-03-19 10:16 | disposition home or self-care (01) ==
LOC: ER 06:56
PROVIDERS: Emergency Medicine
DX: R42 Dizziness and giddiness (principal); R51 Headache; I10 Essential (primary) hypertension; J44.9 Chronic obstructive pulmonary disease, unspecified; M81.0 Age-related osteoporosis without current pathological fracture; G47.30 Sleep apnea, unspecified; F41.9 Anxiety disorder, unspecified; Z90.49 Acquired absence of other specified parts of digestive tract; Z86.711 Personal history of pulmonary embolism; Z87.442 Personal history of urinary calculi; Z95.5 Presence of coronary angioplasty implant and graft; Z87.891 Personal history of nicotine dependence; Z88.2 Allergy status to sulfonamides; Z88.6 Allergy status to analgesic agent; Z88.8 Allergy status to other drugs, medicaments and biological substances

== ENCOUNTER 2019-06-10 13:03 | Emergency (ER) | payer MEDICARE ==
[~2019-06-10] VITALS: Ht 167.6 cm; Wt 84.4 kg
[~2019-06-10 13:03] MED LIST changes: +COMPAZINE5 M1 PO; +FOLIC ACID1 MG PO; +VITAMIN B-125000 MCG SUBLING
[2019-06-10 15:11] LABS: ABSOLUTE NEUTROPHILS 3.7 thou/uL (1.4-8.2); BASOPHILS 0.8 % (0.0-2.0); EOSINOPHILS 1.9 % (0.0-3.0); HEMATOCRIT 32.4 % (37.0-47.0); HEMOGLOBIN 10.9 gm/dL (12.0-15.0); LYMPHOCYTES 20.5 % (24.0-44.0); MCH 30.1 pg (26.0-34.0); MCHC 33.8 g/dL (28.0-37.0); MCV 89.3 fL (80.0-100.0); MONOCYTES 8.9 % (1.0-8.0); PLATELET COUNT 136 thou/uL (150-400); POLYS 67.9 % (36.0-66.0); RBC 3.63 mil/uL (4.20-5.00); RDW 14.6 % (10.5-14.5); WBC 5.5 thou/uL (4.0-11.0)
[2019-06-10 15:14] LABS: ANION GAP 13 mmol/L (7-16); BUN 12 mg/dL (7-18); CALCIUM 9.8 mg/dL (8.5-10.1); CHLORIDE 106 mmol/L (98-107); CO2 23 mmol/L (21-32); CREATININE 0.7 mg/dL (0.6-1.0); GLUCOSE 88 mg/dL (74-106); POTASSIUM 4.4 mmol/L (3.5-5.1); SODIUM 142 mmol/L (136-145)
[2019-06-10 15:23] LABS: TROPONIN-I <0.06 ng/mL (<0.06)
[2019-06-10 15:40] VITALS: BP 173/82
--- NOTE | 2019-06-10 16:32 | EKG ---
[place] [address] [facility] [place] [address] ELECTROCARDIOGRAM REPORT Name: BHARATHI GRANT [facility] [id number] Admission: 06/10/19 Attend Phys: Discharge: Date of : 40 Report #: [id number] THIS REPORT FOR: //name// [facility] ED Test Date: 2019-06-10 Test Time: 15:11:58 Pat Name: BHARATHI GRANT Department: Room: Gender: F Pain Coordinator: nohemy : 1940 Requested By: Barbara Redmond Order Number: [id number] MD: Helder Robles Measurements Intervals [place] Rate: 68 P: 20 NV: 140 QRS: 78 QRSD: 154 T: -27 QT: 447 QTc: 476 Interpretive Statements Sinus rhythm Right bundle branch block Baseline wander in lead(s) V5 Compared to ECG 03/19/2019 07:31:25 No significant changes Electronically Signed On 06-10-2019 16:32:00 SUPERVISOR PASTE PLANT by Helder Robles [email or web address] <ELECTRONICALLY SIGNED> By: Helder Robles MD 06/10/19 1632 10 10 Helder Robles MD /JENNIFER
== END 2019-06-10 17:11 | disposition still patient (30) ==
LOC: ER 13:03
PROVIDERS: Emergency Medicine
DX: I10 Essential (primary) hypertension (principal); R06.02 Shortness of breath; J44.9 Chronic obstructive pulmonary disease, unspecified; M81.0 Age-related osteoporosis without current pathological fracture; G47.30 Sleep apnea, unspecified; F41.9 Anxiety disorder, unspecified; Z90.49 Acquired absence of other specified parts of digestive tract; Z87.442 Personal history of urinary calculi; Z95.0 Presence of cardiac pacemaker; Z95.5 Presence of coronary angioplasty implant and graft; Z87.891 Personal history of nicotine dependence; Z88.1 Allergy status to other antibiotic agents; Z88.2 Allergy status to sulfonamides; Z88.6 Allergy status to analgesic agent

== ENCOUNTER 2019-08-07 15:15 | Emergency (ER) | payer MEDICARE ==
[~2019-08-07] VITALS: Ht 162.6 cm; Wt 88.5 kg
[2019-08-07 16:39] LABS: ABSOLUTE NEUTROPHILS 4.6 thou/uL (1.4-8.2); BASOPHILS 0.7 % (0.0-2.0); EOSINOPHILS 1.7 % (0.0-3.0); HEMATOCRIT 45.5 % (37.0-47.0); HEMOGLOBIN 15.1 gm/dL (12.0-15.0); LYMPHOCYTES 21.6 % (24.0-44.0); MCH 29.1 pg (26.0-34.0); MCHC 33.2 g/dL (28.0-37.0); MCV 87.8 fL (80.0-100.0); MONOCYTES 8.9 % (1.0-8.0); POLYS 67.1 % (36.0-66.0); RBC 5.18 mil/uL (4.20-5.00); RDW 15.8 % (10.5-14.5); WBC 6.8 thou/uL (4.0-11.0)
[2019-08-07 16:50] LABS: ANION GAP 12 mmol/L (7-16); BUN 14 mg/dL (7-18); CALCIUM 9.2 mg/dL (8.5-10.1); CHLORIDE 103 mmol/L (98-107); CO2 25 mmol/L (21-32); CREATININE 0.7 mg/dL (0.6-1.0); GLUCOSE 111 mg/dL (74-106); POTASSIUM 3.7 mmol/L (3.5-5.1); SODIUM 140 mmol/L (136-145)
[2019-08-07 16:56] LABS: DIRECT BILIRUBIN 0.1 mg/dL (<0.1-0.2); SGOT 27 U/L (15-37); SGPT 26 U/L (30-65); TOTAL BILIRUBIN 0.6 mg/dL (<0.1-1.0); TROPONIN-I <0.06 ng/mL (<0.06)
[2019-08-07 17:07] LABS: PLATELET COUNT 186 thou/uL (150-400)
--- NOTE | 2019-08-07 17:29 | EKG ---
[facility] [place] [address] ELECTROCARDIOGRAM REPORT Name: BHARATHI GRANT Room #: REG [facility]#: [id number] Admission: 08/07/19 Attend Phys: Discharge: Date of : 40 Report #: [id number] THIS REPORT FOR: cc: Elvia Ortiz MD,Elvia Del Cid,Ric Brice MD [facility] ~ THIS REPORT FOR: //name// [facility] ED Test Date: 2019-08-07 Test Time: 15:38:31 Pat Name: BHARATHI GRANT Department: Room: Gender: F Storm Door Maker: ROSE : 1940 Requested By: Barbara Redmond Order Number: [id number] MD: Ric Del Cid Measurements Intervals [place] Rate: 73 P: 225 [place]: 101 QRS: 89 QRSD: 154 T: -13 QT: 430 QTc: 474 Interpretive Statements Sinus or ectopic atrial rhythm Short [place] interval Right bundle branch block Compared to ECG 06/10/2019 15:11:58 Ectopic atrial rhythm now present Electronically Signed On 08-07-2019 17:28:57 FEED MILL OPERATOR by Ric Del Cid [email or web address] <ELECTRONICALLY SIGNED> By: Ric Del Cid MD, [facility] 08/07/19 1728 1538 1538 Ric Del Cid MD, [facility] /EPI
[2019-08-07 19:27] VITALS: BP 160/80
--- NOTE | 2019-08-08 15:53 | NUR ---
Spoke with daughter as requested by ED on getting patient more compliant with medications. Spoke with daughter and suggested an appointment with for her Mother with her present on discussion of importance of taking medications as prescribed. Mother is alert and oriented and refuses any home care for medication assistance and prefers to take her medications "as needed" as opposed to as prescribed. Daughter verbalized an understanding and stated: "Thank you so much for getting started in the right direction". Confirmed with daughter that she had my direct contact and to call back if she felt I could be of further assistance.
== END 2019-08-07 18:50 | disposition home or self-care (01) ==
LOC: ER 15:15
PROVIDERS: Emergency Medicine
DX: I10 Essential (primary) hypertension (principal); R06.00 Dyspnea, unspecified; J44.9 Chronic obstructive pulmonary disease, unspecified; M81.0 Age-related osteoporosis without current pathological fracture; G47.30 Sleep apnea, unspecified; F41.9 Anxiety disorder, unspecified; Z90.49 Acquired absence of other specified parts of digestive tract; Z86.711 Personal history of pulmonary embolism; Z87.442 Personal history of urinary calculi; Z95.0 Presence of cardiac pacemaker; Z95.5 Presence of coronary angioplasty implant and graft; Z87.891 Personal history of nicotine dependence; Z88.2 Allergy status to sulfonamides; Z88.8 Allergy status to other drugs, medicaments and biological substances

== ENCOUNTER → 2020-01-07 | Outpatient (CLI) | payer MEDICARE ==
[~2020-01-07] MED LIST changes: +AUGMENTIN 875-1 EACH PO
== END ==
LOC: RAD 08:54
PROVIDERS: ATTEND Internal Medicine
DX: J44.9 Chronic obstructive pulmonary disease, unspecified (principal); K44.9 Diaphragmatic hernia without obstruction or gangrene; I51.7 Cardiomegaly; Z95.4 Presence of other heart-valve replacement

== ENCOUNTER 2020-03-02 11:27 | Emergency (ER) | payer MEDICARE ==
[~2020-03-02] VITALS: Ht 162.6 cm; Wt 90.7 kg
[2020-03-02 12:02] LABS: HEMATOCRIT 39.7 % (37.0-47.0); HEMOGLOBIN 13.4 gm/dL (12.0-15.0); MCH 29.8 pg (26.0-34.0); MCHC 33.9 g/dL (28.0-37.0); RBC 4.51 mil/uL (4.20-5.00); RDW 16.2 % (10.5-14.5); WBC 5.6 thou/uL (4.0-11.0)
[2020-03-02 12:04] LABS: ANION GAP 10 mmol/L (7-16); BUN 13 mg/dL (7-18); CALCIUM 9.3 mg/dL (8.5-10.1); CHLORIDE 107 mmol/L (98-107); CO2 26 mmol/L (21-32); CREATININE 0.9 mg/dL (0.6-1.0); GLUCOSE 115 mg/dL (74-106); SODIUM 143 mmol/L (136-145)
[2020-03-02 12:12] LABS: TROPONIN-I <0.06 ng/mL (<0.06)
[2020-03-02] MEDS ORDERED: MECLIZINE HCL25 M1 PO (14:58)
[2020-03-02 15:08] VITALS: BP 177/68
--- NOTE | 2020-03-02 16:46 | EKG ---
[facility] [place] [address] ELECTROCARDIOGRAM REPORT Name: BHARATHI GRANT Room #: DEP [facility]#: [id number] Admission: 03/02/20 Attend Phys: Discharge: 03/02/20 Date of : 40 Report #: [id number] THIS REPORT FOR: cc: Elvia Ortiz MD, Paula V. MD Lundgren,Ric Brice MD [facility] ~ THIS REPORT FOR: //name// [facility] ED Test Date: 2020-03-02 Test Time: 11:30:46 Pat Name: BHARATHI GRANT Department: Room: Gender: F Program Management Specialist: LILLY : 1940 Requested By: Viet Rincon Order Number: [id number] MD: Ric Del Cid Measurements Intervals [place] Rate: 75 P: 41 SC: 146 QRS: 99 QRSD: 155 T: -4 QT: 407 QTc: 455 Interpretive Statements Sinus rhythm RBBB and LPFB Compared to ECG 08/07/2019 15:38:31 No significant change was found Electronically Signed On 03-02-2020 16:46:31 CDT by Ric Del Cid [email or web address] <ELECTRONICALLY SIGNED> By: Ric Del Cid MD, [facility] 03/02/20 1646 1130 1130 Ric Del Cid MD, [facility] /EPI
== END 2020-03-02 15:08 | disposition home or self-care (01) ==
LOC: ER 11:27
PROVIDERS: Emergency Medicine
DX: H81.399 Other peripheral vertigo, unspecified ear (principal); R06.00 Dyspnea, unspecified; J44.9 Chronic obstructive pulmonary disease, unspecified; I10 Essential (primary) hypertension; Z95.0 Presence of cardiac pacemaker; Z90.49 Acquired absence of other specified parts of digestive tract; Z79.899 Other long term (current) drug therapy; Z87.891 Personal history of nicotine dependence; Z88.8 Allergy status to other drugs, medicaments and biological substances; Z88.2 Allergy status to sulfonamides; Z88.5 Allergy status to narcotic agent

== ENCOUNTER 2020-03-10 10:11 | Emergency (ER) | payer MEDICARE ==
[~2020-03-10] VITALS: Ht 162.6 cm; Wt 93.0 kg
[~2020-03-10 10:11] MED LIST changes: +MECLIZINE HCL25 M1 PO
[2020-03-10 10:56] LABS: URINE BILIRUBIN NEGATIVE (Negative); URINE BLOOD TRACE (Negative); URINE CLARITY CLEAR; URINE COLOR YELLOW; URINE GLUCOSE-RANDOM* NEGATIVE (Negative); URINE KETONES NEGATIVE (Negative); URINE NITRITE-REFLEX NEGATIVE (Negative); URINE PROTEIN (DIPSTICK) TRACE (Negative); URINE SPECIFIC GRAVITY 1.025 (1.005-1.035); URINE UROBILINOGEN 0.2 E.U./dl (0.2-1.0)
[2020-03-10 10:58] LABS: URINE LEUKOCYTES-REFLEX 1+ (Negative)
[2020-03-10 11:09] LABS: BACTERIA-REFLEX 1-9 Few /HPF (None Seen); CASTS None Seen /LPF (None Seen); CRYSTALS None Seen /LPF (None Seen); SQUAMOUS 4-10 Moderate /LPF (0-3); URINE RBC 0-2 Rare /HPF (0-2); URINE WBC-REFLEX 6-15 Few /HPF (0-5)
[2020-03-10 11:32] LABS: ABSOLUTE NEUTROPHILS 6.7 thou/uL (1.4-8.2); BASOPHILS 0.1 % (0.0-2.0); EOSINOPHILS 0.9 % (0.0-3.0); HEMOGLOBIN 13.5 gm/dL (12.0-15.0); LYMPHOCYTES 3.4 % (24.0-44.0); MCH 29.4 pg (26.0-34.0); MCHC 33.7 g/dL (28.0-37.0); MCV 87.4 fL (80.0-100.0); PLATELET COUNT 165 thou/uL (150-400); POLYS 91.6 % (36.0-66.0); RBC 4.57 mil/uL (4.20-5.00); RDW 15.6 % (10.5-14.5); WBC 7.3 thou/uL (4.0-11.0)
[2020-03-10 11:41] LABS: ANION GAP 16 mmol/L (7-16); BUN 14 mg/dL (7-18); CALCIUM 9.3 mg/dL (8.5-10.1); CHLORIDE 106 mmol/L (98-107); CO2 20 mmol/L (21-32); CREATININE 0.7 mg/dL (0.6-1.0); GLUCOSE 130 mg/dL (74-106); SODIUM 142 mmol/L (136-145)
[2020-03-10 11:51] LABS: ALBUMIN 4.7 g/dL (3.4-5.0); SGOT 38 U/L (15-37); SGPT 34 U/L (30-65); TOTAL BILIRUBIN 0.6 mg/dL (0.2-1.0); TROPONIN-I <0.06 ng/mL (<0.06)
--- NOTE | 2020-03-10 12:21 | EKG ---
[facility] [place] [address] ELECTROCARDIOGRAM REPORT Name: BHARATHI GRANT Room #: REG [facility].#: [id number] Admission: 03/10/20 Attend Phys: Discharge: Date of : 40 Report #: [id number] THIS REPORT FOR: cc: Angel,Elvia Ortiz,Toro Crouch MD, MD [facility] ~ THIS REPORT FOR: //name// [facility] ED Test Date: 2020-03-10 Test Time: 11:04:52 Pat Name: BHARATHI GRANT Department: Room: Gender: F World Renowned Chef And Restaurant Owner: gary : 1940 Requested By: Prakash Campbell Order Number: [id number] MD: Toro Tim Measurements Intervals [place] Rate: 93 P: 254 MD: 112 QRS: 113 QRSD: 146 T: -30 QT: 376 QTc: 468 Interpretive Statements Sinus or ectopic atrial rhythm Borderline short MD interval Right bundle branch block Compared to ECG 03/02/2020 11:30:46 Ectopic atrial rhythm now present Sinus rhythm no longer present Left posterior fascicular block no longer present Electronically Signed On 03-10-2020 12:21:44 CDT by Toro Tim [email or web address] <ELECTRONICALLY SIGNED> By: Toro Tim MD, [facility] 03/10/20 1221 1104 1104 Toro Tim MD, [facility] /EPI
[2020-03-10] MEDS ORDERED: KEFLEX500 M1 PO (13:47)
[2020-03-10 14:49] VITALS: BP 139/87
== END 2020-03-10 14:49 | disposition home or self-care (01) ==
LOC: ER 10:11
PROVIDERS: Physician Assistant
DX: N39.0 Urinary tract infection, site not specified (principal); I10 Essential (primary) hypertension; J44.9 Chronic obstructive pulmonary disease, unspecified; Z95.0 Presence of cardiac pacemaker; Z90.49 Acquired absence of other specified parts of digestive tract; Z79.82 Long term (current) use of aspirin; Z79.899 Other long term (current) drug therapy; Z87.891 Personal history of nicotine dependence; Z88.2 Allergy status to sulfonamides; Z88.5 Allergy status to narcotic agent; Z88.8 Allergy status to other drugs, medicaments and biological substances

== ENCOUNTER 2020-04-12 08:54 | Emergency (ER) | payer MEDICARE ==
[~2020-04-12] VITALS: Ht 162.6 cm; Wt 90.7 kg
[~2020-04-12 08:54] MED LIST changes: +KEFLEX500 M1 PO
[2020-04-12 09:20] LABS: ABSOLUTE NEUTROPHILS 3.8 thou/uL (1.4-8.2); BASOPHILS 0.5 % (0.0-2.0); EOSINOPHILS 2.2 % (0.0-3.0); HEMATOCRIT 40.8 % (37.0-47.0); HEMOGLOBIN 13.3 gm/dL (12.0-15.0); LYMPHOCYTES 19.3 % (24.0-44.0); MCH 28.2 pg (26.0-34.0); MCHC 32.5 g/dL (28.0-37.0); MCV 86.7 fL (80.0-100.0); MONOCYTES 8.6 % (1.0-8.0); PLATELET COUNT 193 thou/uL (150-400); POLYS 69.4 % (36.0-66.0); RBC 4.71 mil/uL (4.20-5.00); RDW 15.5 % (10.5-14.5); WBC 5.4 thou/uL (4.0-11.0)
[2020-04-12 09:29] LABS: ANION GAP 12 mmol/L (7-16); BUN 15 mg/dL (7-18); CALCIUM 9.1 mg/dL (8.5-10.1); CHLORIDE 108 mmol/L (98-107); CO2 26 mmol/L (21-32); CREATININE 0.9 mg/dL (0.6-1.0); GLUCOSE 107 mg/dL (74-106); POTASSIUM 3.9 mmol/L (3.5-5.1); SODIUM 146 mmol/L (136-145)
[2020-04-12 09:31] LABS: APTT 25.6 Seconds (24.5-32.8); PROTIME 10.4 Seconds (9.3-11.4)
[2020-04-12 09:39] LABS: ALBUMIN 3.7 g/dL (3.4-5.0); MAGNESIUM 2.1 mg/dL (1.8-2.4); SGOT 26 U/L (15-37); SGPT 27 U/L (30-65); TOTAL BILIRUBIN 0.5 mg/dL (0.2-1.0); TOTAL PROTEIN 7.1 g/dL (6.4-8.2); TROPONIN-I <0.06 ng/mL (<0.06)
[2020-04-12 09:52] LABS: BE(vivo) -1.4 mmol/L (-2 to +3); HCO3 22.8 mmol/L (22.0-26.0); PCO2 36.6 mmHg (35.0-45.0); PO2 85.9 mmHg (80.0-100.0); pH 7.412 (7.360-7.450); sO2 96.7 % (92.0-98.0)
[2020-04-12] MEDS ORDERED: VITAMIN B12-FO1 EAC1 (10:00)
[2020-04-12] MEDS ORDERED: PREDNISONE 20 M20 MG PO (10:44)
[2020-04-12] MEDS ORDERED: DOXYCYCLINE 10100 MG PO (10:44)
[2020-04-12] MEDS ORDERED: ATIVAN0.5 M1 PO (10:44)
[2020-04-12 11:51] VITALS: BP 162/72
--- NOTE | 2020-04-14 07:42 | EKG ---
[facility] [place] [address] ELECTROCARDIOGRAM REPORT Name: BHARATHI GRANT [facility] [id number] Admission: 04/12/20 Attend Phys: Discharge: 04/12/20 Date of : 40 Report #: [id number] THIS REPORT FOR: cc: Elvia Ortiz MD,Elvia Del Cid,Ric Brice MD [facility] ~ THIS REPORT FOR: //name// [facility] ED Test Date: 2020-04-12 Test Time: 09:09:10 Pat Name: BHARATHI GRANT Department: Room: Gender: F Evp Operations: CHRISTINE : 1940 Requested By: Vlad Ricketts Order Number: [id number] MD: Ric Del Cid Measurements Intervals [place] Rate: 70 P: -7 [place]: 164 QRS: 106 QRSD: 152 T: -15 QT: 425 QTc: 459 Interpretive Statements Sinus rhythm Atrial premature complexes Right bundle branch block Compared to ECG 03/10/2020 11:04:52 Atrial premature complex(es) now present Electronically Signed On 04-14-2020 7:42:42 PLUMBER by Ric Del Cid [email or web address] <ELECTRONICALLY SIGNED> By: Ric Del Cid MD, [facility] 04/14/20 0742 8 8 Ric Del Cid MD, [facility]AC /EPI
== END 2020-04-12 11:51 | disposition home or self-care (01) ==
LOC: ER 08:54
PROVIDERS: Emergency Medicine
DX: J44.1 Chronic obstructive pulmonary disease with (acute) exacerbation (principal); Z20.828 Contact with and (suspected) exposure to other viral communicable diseases; I10 Essential (primary) hypertension; M81.0 Age-related osteoporosis without current pathological fracture; F41.9 Anxiety disorder, unspecified; Z90.49 Acquired absence of other specified parts of digestive tract; Z87.442 Personal history of urinary calculi; Z79.899 Other long term (current) drug therapy; Z79.82 Long term (current) use of aspirin; Z88.8 Allergy status to other drugs, medicaments and biological substances; Z88.2 Allergy status to sulfonamides; Z87.891 Personal history of nicotine dependence; Z99.81 Dependence on supplemental oxygen

== ENCOUNTER 2020-04-28 08:02 | Emergency (ER) | payer MEDICARE ==
[~2020-04-28] VITALS: Ht 162.6 cm; Wt 90.7 kg
[~2020-04-28 08:02] MED LIST changes: +ATIVAN0.5 M1 PO; +VITAMIN B12-FO1 EAC1
--- NOTE | 2020-04-28 08:33 | EKG ---
[facility] [place] [address] ELECTROCARDIOGRAM REPORT Name: BHARATHI GRANT Room #: PRE [facility]..#: [id number] Admission: Attend Phys: Discharge: Date of : 40 Report #: [id number] THIS REPORT FOR: cc: Elvia Ortiz MD, Paula V. MD Lundgren,Ric Brice MD [facility] ~ THIS REPORT FOR: //name// [facility] ED Test Date: 2020-04-28 Test Time: 08:26:51 Pat Name: BHARATHI GRANT Department: Room: Gender: F [employer] Dispatcher: : 1940 Requested By: Vlad Ricketts Order Number: [id number] MD: Ric Del Cid Measurements Intervals [place] Rate: 72 P: 52 [place]: 161 QRS: 98 QRSD: 144 T: -10 QT: 425 QTc: 466 Interpretive Statements Sinus rhythm Atrial premature complex RBBB Compared to ECG 04/12/2020 09:09:10 No significant change was found Electronically Signed On 04-28-2020 8:33:50 ENGINEERING PROGRAM MANAGER by Ric Del Cid [email or web address] <ELECTRONICALLY SIGNED> By: Ric Del Cdi MD, [facility] 04/28/2033 5 5 Ric Del Cid MD, [facility] /EPI
[2020-04-28 09:33] LABS: ABSOLUTE NEUTROPHILS 4.7 thou/uL (1.4-8.2); BASOPHILS 0.4 % (0.0-2.0); EOSINOPHILS 1.5 % (0.0-3.0); HEMATOCRIT 40.1 % (37.0-47.0); MCH 28.3 pg (26.0-34.0); MCHC 32.5 g/dL (28.0-37.0); MONOCYTES 7.1 % (1.0-8.0); PLATELET COUNT 121 thou/uL (150-400); RBC 4.61 mil/uL (4.20-5.00); RDW 16.1 % (10.5-14.5); WBC 6.1 thou/uL (4.0-11.0)
[2020-04-28 09:46] LABS: ANION GAP 8 mmol/L (7-16); BUN 17 mg/dL (7-18); CALCIUM 9.4 mg/dL (8.5-10.1); CHLORIDE 108 mmol/L (98-107); CO2 27 mmol/L (21-32); CREATININE 0.9 mg/dL (0.6-1.0); GLUCOSE 105 mg/dL (74-106); POTASSIUM 3.8 mmol/L (3.5-5.1); SODIUM 143 mmol/L (136-145)
[2020-04-28 09:56] LABS: ALBUMIN 3.4 g/dL (3.4-5.0); MAGNESIUM 2.3 mg/dL (1.8-2.4); SGOT 22 U/L (15-37); SGPT 22 U/L (30-65); TOTAL BILIRUBIN 0.6 mg/dL (0.2-1.0); TOTAL PROTEIN 6.7 g/dL (6.4-8.2); TROPONIN-I <0.06 ng/mL (<0.06)
[2020-04-28 10:41] VITALS: BP 148/74
== END 2020-04-28 10:41 | disposition home or self-care (01) ==
LOC: ER 08:02
PROVIDERS: Emergency Medicine
DX: J44.9 Chronic obstructive pulmonary disease, unspecified (principal); G47.30 Sleep apnea, unspecified; I10 Essential (primary) hypertension; Z90.49 Acquired absence of other specified parts of digestive tract; Z95.0 Presence of cardiac pacemaker; Z79.899 Other long term (current) drug therapy; Z87.891 Personal history of nicotine dependence; Z88.2 Allergy status to sulfonamides; Z88.5 Allergy status to narcotic agent; Z88.8 Allergy status to other drugs, medicaments and biological substances

== ENCOUNTER 2020-07-14 18:06 | Emergency (ER) | payer MEDICARE ==
[~2020-07-14] VITALS: Ht 162.6 cm; Wt 90.7 kg
[2020-07-14 18:39] LABS: ABSOLUTE NEUTROPHILS 3.9 thou/uL (1.4-8.2); BASOPHILS 0.7 % (0.0-2.0); HEMATOCRIT 39.2 % (37.0-47.0); HEMOGLOBIN 12.6 gm/dL (12.0-15.0); LYMPHOCYTES 19.2 % (24.0-44.0); MCH 27.6 pg (26.0-34.0); MCHC 32.2 g/dL (28.0-37.0); MCV 85.7 fL (80.0-100.0); MONOCYTES 8.7 % (1.0-8.0); PLATELET COUNT 186 thou/uL (150-400); POLYS 69.4 % (36.0-66.0); RBC 4.57 mil/uL (4.20-5.00); RDW 16.6 % (10.5-14.5); WBC 5.6 thou/uL (4.0-11.0)
[2020-07-14 18:46] LABS: ANION GAP 11 mmol/L (7-16); BUN 13 mg/dL (7-18); CALCIUM 8.9 mg/dL (8.5-10.1); CHLORIDE 107 mmol/L (98-107); CO2 24 mmol/L (21-32); CREATININE 0.9 mg/dL (0.6-1.0); GLUCOSE 195 mg/dL (74-106); POTASSIUM 4.1 mmol/L (3.5-5.1); SODIUM 142 mmol/L (136-145)
[2020-07-14 18:55] LABS: ALBUMIN 3.5 g/dL (3.4-5.0); SGOT 24 U/L (15-37); SGPT 30 U/L (30-65); TOTAL BILIRUBIN 0.4 mg/dL (0.2-1.0); TOTAL PROTEIN 6.8 g/dL (6.4-8.2); TROPONIN-I <0.06 ng/mL (<0.06)
[2020-07-14] MEDS ORDERED: PREDNISONE 20 M20 M1 PO (20:46)
[2020-07-14] MEDS ORDERED: AZITHROMYCIN250 MG PO (20:46)
[2020-07-14 21:10] VITALS: BP 170/81
--- NOTE | 2020-07-15 07:20 | EKG ---
[place] [address] [facility] [place] [address] ELECTROCARDIOGRAM REPORT Name: BHARATHI GRANT [facility] [id number] Admission: 07/14/20 Attend Phys: Discharge: 07/14/20 Date of : 40 Report #: [id number] [facility] ED Test Date: 2020-07-14 Test Time: 20:49:04 Pat Name: BHARATHI GRANT Department: Room: Gender: F Organ Fixer: sangeeta : 1940 Requested By: Alejandro Bernard Order Number: [id number] MD: Toro Tim Measurements Intervals [place] Rate: 79 P: 7 [place]: 170 QRS: 109 QRSD: 149 T: -14 QT: 409 QTc: 469 Interpretive Statements Sinus rhythm RBBB and LPFB Compared to ECG 04/28/2020 08:26:51 Left posterior fascicular block now present Atrial premature complex(es) no longer present Electronically Signed On 07-15-2020 7:20:28 SOLUTIONS MANAGER by Toro Tim [email or web address] <ELECTRONICALLY SIGNED> By: Toro Tim MD, [facility] 07/15/20 0720 48 48 Toro Tim MD, [facility] /EPI
== END 2020-07-14 21:10 | disposition home or self-care (01) ==
LOC: ER 18:06
PROVIDERS: Emergency Medicine
DX: J20.9 Acute bronchitis, unspecified (principal); Z20.828 Contact with and (suspected) exposure to other viral communicable diseases; I10 Essential (primary) hypertension; Z87.891 Personal history of nicotine dependence; Z88.1 Allergy status to other antibiotic agents; Z88.2 Allergy status to sulfonamides; Z88.5 Allergy status to narcotic agent; Z79.899 Other long term (current) drug therapy; Z79.82 Long term (current) use of aspirin; Z98.890 Other specified postprocedural states; Z87.442 Personal history of urinary calculi; Z87.01 Personal history of pneumonia (recurrent)

== ENCOUNTER 2020-07-16 10:52 | Emergency (ER) | payer MEDICARE ==
[~2020-07-16] VITALS: Ht 162.6 cm; Wt 90.7 kg
[~2020-07-16 10:52] MED LIST changes: +AZITHROMYCIN250 MG PO; +PREDNISONE 20 M20 M1 PO
[2020-07-16 13:09] VITALS: BP 142/74
== END 2020-07-16 13:09 | disposition home or self-care (01) ==
LOC: ER 10:52
DX: S70.01XA Contusion of right hip, initial encounter (principal); S80.01XA Contusion of right knee, initial encounter; S40.011A Contusion of right shoulder, initial encounter; J44.9 Chronic obstructive pulmonary disease, unspecified; I10 Essential (primary) hypertension; Z90.49 Acquired absence of other specified parts of digestive tract; Z95.0 Presence of cardiac pacemaker; Z79.899 Other long term (current) drug therapy; Z87.891 Personal history of nicotine dependence; Z88.2 Allergy status to sulfonamides; Z88.8 Allergy status to other drugs, medicaments and biological substances; Z88.5 Allergy status to narcotic agent; X58.XXXA Exposure to other specified factors, initial encounter; Y93.89 Activity, other specified; Y92.89 Other specified places as the place of occurrence of the external cause; Y99.8 Other external cause status

== ENCOUNTER 2020-10-06 22:13 | Emergency (ER) | payer MEDICARE ==
[~2020-10-06] VITALS: Ht 162.6 cm; Wt 90.7 kg
[2020-10-06] MEDS ORDERED: ALENDRONATE SOD70 MG PO (22:22)
[2020-10-06] MEDS ORDERED: GLUCOPHAGE XR500 M1 PO (22:23)
[2020-10-06] MEDS ORDERED: TRELEGY ELLIPT1 EACH INH (22:25)
[2020-10-07 01:00] VITALS: BP 159/71
== END 2020-10-07 01:00 | disposition home or self-care (01) ==
LOC: ER 22:13
DX: S09.90XA Unspecified injury of head, initial encounter (principal); I10 Essential (primary) hypertension; J44.9 Chronic obstructive pulmonary disease, unspecified; Z90.49 Acquired absence of other specified parts of digestive tract; Z95.0 Presence of cardiac pacemaker; Z79.899 Other long term (current) drug therapy; Z88.2 Allergy status to sulfonamides; Z88.5 Allergy status to narcotic agent; Z88.8 Allergy status to other drugs, medicaments and biological substances; Z79.82 Long term (current) use of aspirin; W18.39XA Other fall on same level, initial encounter; Y93.89 Activity, other specified; Y92.89 Other specified places as the place of occurrence of the external cause; Y99.8 Other external cause status